=== PATIENT | male | born 1980 | race Caucasian/White ===

== ENCOUNTER 2016-08-24 22:41 | Emergency (ER) | payer OTHER, BC ==
[~2016-08-24] VITALS: Ht 175.3 cm; Wt 104.1 kg
[~2016-08-24 22:41] MED LIST: FIORICET 50-301 EACH PO; FLEXERIL10 MG PO; FLOMAX0.4 MG PO; MOTRIN800 MG PO; NAPROSYN500 MG PO; PERCOCET 5/31 TABLET PO; ZANTAC150 MG PO; ZOFRAN ODT4 MG PO
[2016-08-25] MEDS ORDERED: BLOOD PRESSURE MED PO (00:16)
[2016-08-25 01:02] VITALS: BP 142/88
== END 2016-08-25 01:02 | disposition home or self-care (01) ==
LOC: EME 22:41
DX: S00.83XA Contusion of other part of head, initial encounter (principal); S40.011A Contusion of right shoulder, initial encounter; Y04.0XXA Assault by unarmed brawl or fight, initial encounter; Y99.0 Civilian activity done for income or pay; R11.0 Nausea; I10 Essential (primary) hypertension
CPT/HCPCS: 99281; 99284

== ENCOUNTER 2016-10-14 20:21 | Emergency (ER) | payer OTHER, BC ==
[~2016-10-14] VITALS: Ht 175.3 cm; Wt 105.6 kg
[~2016-10-14 20:21] MED LIST changes: +BLOOD PRESSURE MED PO
[2016-10-14] MEDS ORDERED: NAPROSYN500 MG PO (21:32)
[2016-10-14] MEDS ORDERED: AUGMENTIN875 MG PO (21:32)
[2016-10-14 22:48] VITALS: BP 141/98
== END 2016-10-14 22:52 | disposition home or self-care (01) ==
LOC: EME 20:21
DX: S86.812A Strain of other muscle(s) and tendon(s) at lower leg level, left leg, initial encounter (principal); S61.451A Open bite of right hand, initial encounter; S00.91XA Abrasion of unspecified part of head, initial encounter; Y04.0XXA Assault by unarmed brawl or fight, initial encounter; Y04.1XXA Assault by human bite, initial encounter; I10 Essential (primary) hypertension
CPT/HCPCS: 73564; 99281; 99283

== ENCOUNTER 2017-02-18 17:47 | Emergency (ER) | payer OTHER, BC ==
[~2017-02-18] VITALS: Ht 175.3 cm; Wt 101.3 kg
[~2017-02-18 17:47] MED LIST changes: +AUGMENTIN875 MG PO
[2017-02-18] MEDS ORDERED: MOTRIN800 MG PO (20:18)
[2017-02-18 20:34] VITALS: BP 135/85
== END 2017-02-18 20:35 | disposition home or self-care (01) ==
LOC: EME 17:47
DX: S83.91XA Sprain of unspecified site of right knee, initial encounter (principal); S09.90XA Unspecified injury of head, initial encounter; S60.411A Abrasion of left index finger, initial encounter; Y04.2XXA Assault by strike against or bumped into by another person, initial encounter; Y99.0 Civilian activity done for income or pay; I10 Essential (primary) hypertension; Z87.442 Personal history of urinary calculi
CPT/HCPCS: 73564; 99281; 99284

== ENCOUNTER 2017-11-05 17:58 | Emergency (ER) | payer OTHER, BC ==
[~2017-11-05] VITALS: Ht 175.3 cm; Wt 105.7 kg
[2017-11-05] MEDS ORDERED: AUGMENTIN875 MG PO (19:16)
[2017-11-05 19:57] LABS: BASOPHIL (%) 0.6 % (0-1); BASOPHIL COUNT 0.1 K/uL (0-0.1); EOSINOPHIL (%) 1.6 % (0-5); EOSINOPHIL COUNT 0.2 K/uL (0-0.3); HEMATOCRIT 45.9 % (38.0-50.0); HEMOGLOBIN 16.4 G/DL (12.5-16.6); IMMATURE GRANULOCYTE (%) 0.2 % (0.0-0.7); LYMPHOCYTE (%) 17.6 % (15-42); LYMPHOCYTE COUNT 1.9 K/uL (1.0-2.8); MCH 30.4 PG (29.0-34.0); MCHC 35.7 G/DL (30.0-36.0); MONOCYTE COUNT 0.7 K/uL (0-0.8); NEUTROPHIL COUNT 8.1 K/uL (1.8-6.4); PLATELET COUNT 264 K/uL (156-360); RBC DIS.WIDTH-CV 11.9 % (11.8-14.6); RBC DIS.WIDTH-SD 36.6 % (39-53); WHITE BLOOD COUNT 10.9 K/uL (4.1-10.2)
[2017-11-05 20:12] LABS: ALBUMIN 4.5 g/dL (3.2-4.8); CHLORIDE 106 mEq/L (99-109); POTASSIUM 3.9 mEq/L (3.7-5.4); SODIUM 140 mEq/L (136-147)
[2017-11-05 20:14] LABS: GLUCOSE 103 mg/dL (70-99); TOTAL PROTEIN 7.7 g/dL (6.4-8.3)
[2017-11-05 20:16] LABS: TOTAL BILIRUBIN 0.6 mg/dL (0.0-1.0)
[2017-11-05 20:18] LABS: ALKALINE PHOSPHATASE 104 IU/L (3-129); CREATININE 1.1 mg/dL (0.6-1.3); GFR ESTIMATE (CALCULATED) > 59 mL/min/ (58.99-99999)
[2017-11-05 20:19] LABS: AST (GOT) 22 IU/L (2-34); UREA NITROGEN (BUN) 10 mg/dL (9-23)
[2017-11-05 20:20] LABS: DIRECT BILIRUBIN 0.2 mg/dL (0.0-0.3)
[2017-11-05 20:21] LABS: ALT (GPT) 39 IU/L (3-49)
[2017-11-05 21:37] VITALS: BP 148/88
[2017-11-06 11:08] LABS: HEPATITIS C ANTIBODY Nonreactive
[2017-11-06 12:03] LABS: HEPATITIS B SURFACE ANTIBODY Nonreactive; HIV-1/2 AB/AG COMBO Nonreactive
== END 2017-11-05 21:39 | disposition home or self-care (01) ==
LOC: EME 17:58
PROVIDERS: Physician Assistant Medical
DX: S61.230A Puncture wound without foreign body of right index finger without damage to nail, initial encounter (principal); Y04.1XXA Assault by human bite, initial encounter; Y92.89 Other specified places as the place of occurrence of the external cause; Y99.0 Civilian activity done for income or pay; Y07.59 Other non-family member, perpetrator of maltreatment and neglect
CPT/HCPCS: 73140; 80048; 80076; 85025; 86706; 86803; 87389; 99281; 99284